=== PATIENT | female | born 1945 | race Caucasian/White ===

== ENCOUNTER 2019-06-04 12:09 | Outpatient (CLI) | payer MEDICARE, BC ==
[~2019-06-04 12:09] MED LIST: ACET-1600 PO; ASPI-614 PO; CHOL100012 PO; CIDE300T PO; GLIP10TA24 PO; HYDR-3241 PO; LEVO100T5 PO; LISI-170 PO; METF10007 PO; MULT-717 PO; NEBI5TAB3 PO; SPIRIVA RESPIMAT INH; TIOT4MIS5 INH; TRAM50TA2 PO; calcium 600mg PO
[2019-06-04] MEDS ORDERED: LOVA40TA2 PO (13:38)
[2019-06-04 13:40] LABS: ALBUMIN 3.6 g/dL (3.4-5.0); ANION GAP 10 mmol/L (5-15); CALCIUM 9.1 mg/dL (8.5-10.1); CHLORIDE 104 mmol/L (98-107)
[2019-06-04 13:44] LABS: ALANINE AMINOTRANSFERASE 31 U/L (12-78); ALKALINE PHOSPHATASE 80 U/L (45-117); BILIRUBIN,TOTAL 0.4 mg/dL (0.2-1.0); CREATININE 1.13 mg/dL (0.55-1.02); TOTAL PROTEIN 7.3 g/dL (6.4-8.2)
== END 2019-06-04 23:59 | disposition home or self-care (01) ==
LOC: STAR 12:09
PROVIDERS: ATTEND Orthopaedic Surgery
DX: Z01.818 Encounter for other preprocedural examination (principal); M75.122 Complete rotator cuff tear or rupture of left shoulder, not specified as traumatic; M75.121 Complete rotator cuff tear or rupture of right shoulder, not specified as traumatic; M19.011 Primary osteoarthritis, right shoulder; Z87.891 Personal history of nicotine dependence
CPT/HCPCS: 36415; 80053; 87081; 93005

== ENCOUNTER 2019-06-21 07:00 | Inpatient (IN) | payer MEDICARE, BC ==
[~2019-06-21] VITALS: Ht 167.6 cm; Wt 86.2 kg
[~2019-06-21 07:00] MED LIST changes: +BUPIVACAINE LIPOSOME/PF 10ML INFIL ONE; +LOVA40TA2 PO
[2019-06-21] MEDS ORDERED: LACTATED RINGERS 1,000 ML IV ONE (09:58)
[2019-06-21] MEDS ORDERED: GABAPENTIN 300 MG CAPSULE PO STA (09:59)
[2019-06-21] MEDS ORDERED: ACETAMINOPHEN 500 MG TABLET PO STA (09:59)
[2019-06-21] MEDS ORDERED: MIDAZOLAM 1 MG/ML, 2ML ONE (10:04)
[2019-06-21] MEDS ORDERED: FENTANYL PF 250 MCG/5ML ONE (10:05)
[2019-06-21] MEDS: SODIUM CHLORIDE 0.9% 1,000 ML IV SCH ×2 (10:29→23:00)
[2019-06-21] MEDS ORDERED: morphine SULFATE 10 MG/ML, 1ML IV PRN (10:30)
[2019-06-21] MEDS ORDERED: ONDANSETRON 2MG/ML, 2ML IV PRN (10:30)
[2019-06-21] MEDS ORDERED: ACETAMINOPHEN 325 MG TABLET PO PRN (10:30)
[2019-06-21] MEDS ORDERED: DIPHENHYDRAMINE 25 MG CAPSULE PO PRN (10:30)
[2019-06-21] MEDS ORDERED: MAGNESIUM HYDROXIDE 8%, 30ML UDC PO PRN (10:30)
[2019-06-21] MEDS ORDERED: CLINDAMYCIN 150 MG/ML, 6ML ONE (10:53)
[2019-06-21] MEDS ORDERED: PHENYLEPHRINE 10 MG/ML ONE (12:03)
[2019-06-21] MEDS ORDERED: hydrALAzine 20 MG/ML, 1ML IV PRN (13:00)
[2019-06-21] MEDS ORDERED: HYDROmorphone 2 MG/ML, 1ML IVPush PRN (13:00)
[2019-06-21] MEDS ORDERED: MEPERIDINE/PF 25MG/ML,1ML IVPush PRN (13:00)
[2019-06-21] MEDS ORDERED: PROMETHAZINE 25 MG/ML, 1ML IV PRN (13:00)
[2019-06-21] MEDS ORDERED: OXYcodone 5 MG/5 ML ORAL.SOL UDC PO PRN (13:00)
[2019-06-21] MEDS ORDERED: MIDAZOLAM 1 MG/ML, 2ML IV PRN (13:00)
[2019-06-21] MEDS ORDERED: ALBUTEROL/IPRATROPIUM 2.5MG/0.5MG, 3 ML NPPB PRN (13:00)
[2019-06-21] MEDS ORDERED: METOPROLOL 1 MG/ML, 5ML IV PRN (13:00)
[2019-06-21] MEDS ORDERED: LIDOCAINE-MPF 2% ,5ML ONE (13:09)
[2019-06-21] MEDS ORDERED: GLYCOPYRROLATE 0.2MG/1ML, 5ML ONE (13:09)
[2019-06-21] MEDS ORDERED: ONDANSETRON 2MG/ML, 2ML ONE (13:09)
[2019-06-21] MEDS ORDERED: NEOSTIGMINE 1 MG/ML, 10ML ONE (13:09)
[2019-06-21] MEDS ORDERED: ROCURONIUM 10MG/ML,5ML ONE (13:09)
[2019-06-21] MEDS ORDERED: DEXAMETHASONE 4 MG/ML, 1ML ONE (13:09)
[2019-06-21] MEDS ORDERED: SUCCINYLCHOLINE 20 MG/ML, 10ML ONE (13:09)
[2019-06-21] MEDS ORDERED: PROPOFOL 10 MG/ML, 20ML ONE (13:09)
[2019-06-21] MEDS ORDERED: CEFAZOLIN 1,000 MG ONE (13:09)
[2019-06-21] MEDS ORDERED: BUPIVACAINE/PF 0.25% ONE (13:09)
[2019-06-21] MEDS ORDERED: MEPERIDINE/PF 25MG/ML,1ML ONE (14:06)
[2019-06-21] MEDS ORDERED: OXYcodone 5 MG/5 ML ORAL.SOL UDC ONE (14:06)
[2019-06-21] MEDS ORDERED: FENTANYL PF 100 MCG/2ML ONE (14:32)
[2019-06-21] MEDS: FENTANYL PF 100 MCG/2ML IV PRN ×2 (14:33→14:38)
[2019-06-21] MEDS ORDERED: [UNRECOGNIZED DRUG - REMARK] MC SCH (16:00)
[2019-06-21 18:44] VITALS: BP 135/75
[2019-06-21] MEDS: CEFAZOLIN PMX 1GM/50ML 50 ML IVPB SCH (20:29)
[2019-06-21] MEDS ORDERED: LOVASTATIN 40 MG TABLET PO SCH (21:00)
[2019-06-21 23:31] VITALS: BP 123/74
[2019-06-22 03:34] VITALS: BP 125/70
[2019-06-22] MEDS: CEFAZOLIN PMX 1GM/50ML 50 ML IVPB SCH (03:57)
[2019-06-22] MEDS ORDERED: NEBIVOLOL HCL 5 MG TABLET PO SCH (06:00)
[2019-06-22 08:57] VITALS: BP 144/72
[2019-06-22] MEDS ORDERED: metFORMIN 500 MG TABLET PO SCH (09:00)
[2019-06-22] MEDS ORDERED: GLIPizide ER 5 MG TABLET PO SCH (09:00)
[2019-06-22] MEDS ORDERED: TIOTROPIUM BROMIDE HOMEINH SCH (09:00)
[2019-06-22] MEDS ORDERED: LISINOPRIL 20 MG TABLET PO SCH (09:00)
[2019-06-22] MEDS ORDERED: LEVOTHYROXINE 100 MCG TABLET PO SCH (09:00)
[2019-06-22] MEDS ORDERED: ASPIRIN 81 MG TABLET CHEW PO SCH (09:00)
[2019-06-22] MEDS: SODIUM CHLORIDE 0.9% 1,000 ML IV SCH (09:56)
== END 2019-06-22 10:40 | disposition home or self-care (01) | DRG 483 ==
LOC: ORIP 09:45 → 4NE 15:36 → 4EST 21:06 → DCLOUNGE 06-22 10:31
PROVIDERS: ADMIT Orthopaedic Surgery; ATTEND Orthopaedic Surgery
PROC: 0LS40ZZ Reposition Left Upper Arm Tendon, Open Approach (ICD-10-PCS; 2019-06-21)
PROC: 3E0T3BZ Introduction of Anesthetic Agent into Peripheral Nerves and Plexi, Percutaneous Approach (ICD-10-PCS; 2019-06-21)
PROC: 0RRK0JZ Replacement of Left Shoulder Joint with Synthetic Substitute, Open Approach (ICD-10-PCS; principal; 2019-06-21 12:00)
DX: M19.012 Primary osteoarthritis, left shoulder (principal); I48.91 Unspecified atrial fibrillation; I10 Essential (primary) hypertension; Z88.5 Allergy status to narcotic agent; E11.9 Type 2 diabetes mellitus without complications; E78.5 Hyperlipidemia, unspecified; J44.9 Chronic obstructive pulmonary disease, unspecified; M75.21 Bicipital tendinitis, right shoulder
CPT/HCPCS: 82962; C1713; C1776; G0378; J0690; J1100; J2250; J2405; J2704; J2710; J3010; J3490; J0330; J2175; J2370; J7120